=== PATIENT | male | born 1985 | race Hispanic/Latino ===

== ENCOUNTER 2017-10-14 10:01 | Emergency (ER) | payer OTHER ==
[~2017-10-14] VITALS: Ht 172.7 cm; Wt 87.6 kg
[~2017-10-14 10:01] MED LIST: PROTONIX40 MG PO
[2017-10-14] MEDS ORDERED: PERCOCET 5/31 TABLET PO (11:32)
[2017-10-14 11:41] VITALS: BP 127/80
== END 2017-10-14 11:42 | disposition home or self-care (01) ==
LOC: EME 10:01
DX: S60.221A Contusion of right hand, initial encounter (principal); S60.511A Abrasion of right hand, initial encounter; W22.09XA Striking against other stationary object, initial encounter; Z23 Encounter for immunization; F17.200 Nicotine dependence, unspecified, uncomplicated
CPT/HCPCS: 73130; 99281; 99283